=== PATIENT | male | born 1990 | race Caucasian/White ===

== ENCOUNTER 2018-09-16 12:48 | Emergency (ER) | payer BC, SELFPAY ==
[2018-09-16] MEDS ORDERED: Lidocaine 1% 20 ML MDV ONE (13:23)
== END 2018-09-16 14:02 | disposition home or self-care (01) ==
LOC: MADERS 12:48
DX: S61.012A Laceration without foreign body of left thumb without damage to nail, initial encounter (principal); W26.0XXA Contact with knife, initial encounter
CPT/HCPCS: 12001; J2001

== ENCOUNTER 2024-05-30 16:51 | Emergency (ER) | payer BC ==
[2024-05-30] MEDS ORDERED: Boostrix 0.5 ML (Tdap) VIAL (>/=7 yrs of age) ONE (17:31)
[2024-05-30] MEDS ORDERED: Bacitracin 1 PK ONE (17:45)
== END 2024-05-30 17:50 | disposition home or self-care (01) ==
LOC: MADERS 16:51
DX: S51.011A Laceration without foreign body of right elbow, initial encounter (principal); W26.8XXA Contact with other sharp object(s), not elsewhere classified, initial encounter; Y93.89 Activity, other specified; Z23 Encounter for immunization
CPT/HCPCS: 90471; 90715